=== PATIENT | female | born 1985 | race Hispanic/Latino ===

== ENCOUNTER → 2018-06-23 12:24 | Outpatient (CLI) | payer OTHER, SELFPAY ==
[2018-06-23 12:53] LABS: Appearance Urine UA CLEAR; Bilirubin Urine UA NEGATIVE (NEGATIVE); Color Urine UA YELLOW; Glucose Urine UA NEGATIVE (Normal); Ketones Urine UA NEGATIVE (NEGATIVE); Leukocyte Esterase Urine UA NEGATIVE (NEGATIVE); Nitrite Urine UA NEGATIVE (Negative); Occult Blood Urine UA NEGATIVE (Negative); Protein Urine UA NEGATIVE (Negative); Urobilinogen Urine UA 0.2 E.U./dL (0.2); pH Urine UA 6.5 (4.5-8.0)
[2018-06-23 12:54] LABS: Add Manual Diff / Slide Review NO; Basophils Percent Auto 0.8 % (0-2); Eosinophils Percent Auto 1.3 % (2-4); Hematocrit 38.9 % (36-46); Hemoglobin 13.2 g/dL (12.0-16.0); Lymphocytes Percent Auto 23.9 % (25-40); Mean Corpuscular Hemoglobin 31.4 PG (26-34); Mean Corpuscular Volume 92.5 fL (80-100); Monocytes Percent Auto 4.5 % (3-14); Neutrophils Absolute Auto 5800 /uL (3000-5900); Neutrophils Percent Auto 69.5 % (50-75); Platelet Count 229 X10^3/uL (150-400); Red Blood Cell Count 4.21 X10^6/uL (4.0-5.2); Red Cell Distribution Width 12.9 % (11.6-14.8); White Blood Cell Count 8.4 X10^3/uL (4.5-11.0)
[2018-06-23 15:34] LABS: Hepatitis B Surface Antigen NEGATIVE s/c (NEGATIVE)
[2018-06-23 15:53] LABS: HIV 1 and 2 Antibody NEGATIVE (NEGATIVE); Hep C Virus Ab w/Reflex Quant NEGATIVE s/c (NEGATIVE)
[2018-06-26 07:03] LABS: RPR Screen Nonreactive (Nonreactive)
[2018-06-28 09:59] LABS: HSV 2 IGG AB < 0.90 index (< 0.90); HSV1IGG 1.54 index (< 0.90)
== END ==
PROVIDERS: PCP Family Medicine; Visit Provider Family Medicine
DX: Z34.81 Encounter for supervision of other normal pregnancy, first trimester (principal); Z3A.01 Less than 8 weeks gestation of pregnancy
CPT/HCPCS: 36415; 80055; 81003; 86695; 86696; 86703; 86787; 86803; 86850; 86900; 86901; 87086

== ENCOUNTER → 2018-08-24 10:14 | Outpatient (CLI) | payer OTHER, SELFPAY ==
--- NOTE | 2018-08-24 10:16 | DI.US.S_ITS ---
PROCEDURE: US OB >= 14 WEEKS FETUS INDICATIONS: ANATOMY OUTSIDE/PRIOR DATING DATA: Last menstrual period (LMP): 04/09/18. LMP-based estimated date of delivery (GEOVANNI): 01/14/19. First dating scan (date and location): 08/24/18, this study. Estimated date of delivery (GEOVANNI) from first dating scan: 01/15/19. TECHNIQUE: Real-time scanning was performed of the fetus, with image documentation and biometric measurements. Endovaginal scanning: Not needed for this study. COMPARISON: None. FINDINGS: General: A single living intrauterine gestation is present. Presentation: Vertex. Placenta: Placental position is anterior, without previa. Amniotic fluid index: 16.7 cm, normal range is 5-24 cm. heart rate: 153 beats per minute. Maternal cervical canal: 3.4 cm long. Normal lower limit is 2.5 cm. biometrics: Biparietal diameter: 4.5 cm, 19 weeks 4 days Head circumference: 16.6 cm, 19 weeks 2 days Abdominal circumference: 14.4 cm, 19 weeks 5 days Femur length: 3.0 cm, 19 weeks 1 day Estimated gestational age from initial scan: not applicable. Composite gestational age from present scan: 19 weeks 3 days Estimated weight and percentile: 292 g, 37th percentile Measurement variability for biometric dating: +/- 7 days from 14 weeks to 15 weeks 6 days gestation, +/- 10 days from 16 weeks to 21 weeks 6 days gestation, +/- 2 weeks from 22 weeks to 27 weeks 6 days gestation, +/- 3 weeks for 28 weeks gestation or later. weight reference: 4500 g or EFW >90/95% is considered macrosomia or large for gestational age. EFW <10% is small for gestational age. EFW 5% or less is considered intra-uterine growth restriction. Anatomic survey: Neuro: Ventricles are non-dilated at less than 10 mm. Cisterna magna is normal at 3-11 mm. Cerebellum is normal in size and morphology. Nuchal skin fold: Normal at less than 6 mm between 14-21 weeks gestational age. Face: Nose and lips, facial profile are normal. Spine: No evidence for spina bifida. Heart: 4-chambered heart is present, with normal ventricular outflow tracts. Diaphragm: Diaphragm is intact. Stomach: Left-sided stomach is present. Kidneys: No hydronephrosis. Normal is less than 5 mm in 2nd trimester, less than 7 mm in 3rd trimester. Cord: 3-vessel cord has orthotopic insertion. Bladder: Normal in size. Extremities: All 4 extremities identified. IMPRESSION: Single living intrauterine gestation with estimated current gestational age of 19 weeks 3 days and delivery date projected to be centered on 01/15/19. Dictated by: Abhishek Gonzalez M.D. on 08/24/2018 at 16:13 Approved by: Abhishek Gonzalez M.D. on 08/24/2018 at 16:15
== END ==
PROVIDERS: PCP Family Medicine; Visit Provider Family Medicine
DX: Z36.89 Encounter for other specified antenatal screening (principal); Z3A.19 19 weeks gestation of pregnancy
CPT/HCPCS: 76811

== ENCOUNTER → 2018-10-27 10:22 | Outpatient (CLI) | payer OTHER, SELFPAY ==
[2018-10-27 11:51] LABS: Add Manual Diff / Slide Review NO; Basophils Absolute Auto 0 /uL (0-100); Basophils Percent Auto 0.6 % (0-2); Eosinophils Absolute Auto 100 /uL (0-450); Hematocrit 37.5 % (36-46); Hemoglobin 12.5 g/dL (12.0-16.0); Lymphocytes Absolute Auto 1700 /uL (1100-4500); Lymphocytes Percent Auto 20.8 % (25-40); Mean Corpuscular HGB Conc 33.5 % (30-36); Mean Corpuscular Hemoglobin 32.5 PG (26-34); Mean Corpuscular Volume 97.2 fL (80-100); Monocytes Absolute Auto 300 /uL (0-900); Monocytes Percent Auto 4.1 % (3-14); Neutrophils Absolute Auto 6100 /uL (1500-7000); Neutrophils Percent Auto 73.5 % (50-75); Platelet Count 225 X10^3/uL (150-400); Red Blood Cell Count 3.85 X10^6/uL (4.0-5.2); Red Cell Distribution Width 12.7 % (11.6-14.8); White Blood Cell Count 8.3 X10^3/uL (4.5-11.0)
[2018-10-27 12:24] LABS: GTT (PREG) 1 Hour PP 50gm Dose 144 mg/dL (76-139)
== END ==
PROVIDERS: PCP Family Medicine; Visit Provider Family Medicine
DX: Z34.82 Encounter for supervision of other normal pregnancy, second trimester (principal)
CPT/HCPCS: 36415; 82950; 85025

== ENCOUNTER → 2018-12-26 16:43 | Outpatient (CLI) | payer OTHER, SELFPAY ==
[2018-12-27 12:49] LABS: Strep Grp B PCR NEG for Grp B Strep
== END ==
PROVIDERS: PCP Family Medicine; Visit Provider Family Medicine
DX: Z34.83 Encounter for supervision of other normal pregnancy, third trimester (principal); Z3A.37 37 weeks gestation of pregnancy
CPT/HCPCS: 87653

== ENCOUNTER 2019-01-22 05:22 | Inpatient (IN) | payer OTHER, SELFPAY ==
[2019-01-22 06:20] VITALS: BP 109/73
[2019-01-22 06:30] LABS: Add Manual Diff / Slide Review NO; Basophils Absolute Auto 0 /uL (0-100); Basophils Percent Auto 0.3 % (0-2); Eosinophils Absolute Auto 100 /uL (0-450); Eosinophils Percent Auto 0.5 % (2-4); Hematocrit 35.3 % (36-46); Hemoglobin 12.1 g/dL (12.0-16.0); Lymphocytes Absolute Auto 1800 /uL (1100-4500); Lymphocytes Percent Auto 15.8 % (25-40); Mean Corpuscular HGB Conc 34.2 % (30-36); Mean Corpuscular Hemoglobin 31.8 PG (26-34); Mean Corpuscular Volume 92.8 fL (80-100); Monocytes Absolute Auto 400 /uL (0-900); Monocytes Percent Auto 3.9 % (3-14); Neutrophils Absolute Auto 9100 /uL (1500-7000); Neutrophils Percent Auto 79.5 % (50-75); Platelet Count 187 X10^3/uL (150-400); Red Cell Distribution Width 13.2 % (11.6-14.8); White Blood Cell Count 11.5 X10^3/uL (4.5-11.0)
--- NOTE | 2019-01-22 06:56 | P.HPOB_ITS ---
OB HPI Date/Time Date of admission: 01/22/19 Date Patient Seen: 01/22/19 Time Patient Seen: 06:30 History of Present Condition Chief complaint: OBS : 3 Para: 2 Estimated Date of Delivery: 01/16/19 Estimated Gestational Age (weeks): 40w6d Narrative: Lucy Puri is a 33 year old at 40w6d who presented with regular painful contractions. She reports the contractions starting around 1am, and increasing in intensity and frequency since then. No LOF or vaginal bleeding. She is feeling baby move regularly. History of Present care: good care, initiated at week # (10) and pounds weight gain (18) Dating criteria: LMP confirmed by 1st trimester US Ultrasounds: normal mid trimester US Obstetrical complications: none Medical complications: none Preadmission Labs Blood type: O (+) positive -: Antibody screen: negative, GBS status: negative, HBsAG: negative, HIV: negative, HSV 1: positive, HSV 2: negative and RPR/VDLR: negative -: Chlamydia screen: not detected and Gonorrhea screen: not detected -: Rubella: immune and Varicella: immune HCT: 37.5 HCAB: negative PAP: Abnormal (ASCUS, HPV negative) 1 hr GTT: 144 Narrative: Glucola elevated, declined 3hr GTT. Checked blood sugars in clinic - normal range. Prior (ies) History: 09/05/12 - at 40wks, 6lb8oz male 04/06/15 - at 40wks, 6lb8oz male Evaluation Evaluation Baseline heart rate: 150 Variability: Moderate (11-25) monitor accelerations: Present monitor decelerations: Early Contraction Frequency (minutes): 3 Uterine Contraction Intensity: Strong/Firm Category of Tracing: I Cervical dilation (cm): 8 Cervical effacement (%): 100 station: -1 Laboratory results: Laboratory Tests 01/22/19 06:00 WBC 11.5 H RBC 3.80 L Hgb 12.1 Hct 35.3 L MCV 92.8 MCH 31.8 MCHC 34.2 RDW 13.2 Plt Count 187 Neut % (Auto) 79.5 H Lymph % (Auto) 15.8 L Darke % (Auto) 3.9 Eos % (Auto) 0.5 L Baso % (Auto) 0.3 Neut # (Auto) 9100 H Lymph # (Auto) 1800 Darke # (Auto) 400 Eos # (Auto) 100 Baso # (Auto) 0 PFSH Medical History (Updated 03/22/18 @ 11:10 by Gale Caballero DO) Chickenpox (Resolved ~1990) Social History Smoking Status: Never smoker Social History Smoking Status: Never smoker Meds Allergies Allergy/AdvReac Type Severity Reaction Status Date / Time No Known Allergies Allergy Uncoded 06/16/18 14:25 Exam Vital Signs (past 8 hours): - 01/22/19 06:20 Blood Pressure 109/73 Narrative Exam Narrative: Gen: NAD, sitting comfortably in bed, appears well, breathing calmly through contractions CV: RRR, no murmurs Resp: clear to auscultation bilaterally Abd: soft, nondistended, gravid Ext: no edema Objective Labs Result Diagrams: 01/22/19 06:00 Labs: Laboratory Results - last 24 hr 01/22/19 06:00 WBC 11.5 H RBC 3.80 L Hgb 12.1 Hct 35.3 L MCV 92.8 MCH 31.8 MCHC 34.2 RDW 13.2 Plt Count 187 Neut % (Auto) 79.5 H Lymph % (Auto) 15.8 L Darke % (Auto) 3.9 Eos % (Auto) 0.5 L Baso % (Auto) 0.3 Neut # (Auto) 9100 H Lymph # (Auto) 1800 Darke # (Auto) 400 Eos # (Auto) 100 Baso # (Auto) 0 Assessment and Plan Assessment and Plan Assessment and Plan narrative: 33yo at 40w6d who presented in active labor. GBS negative, Rh positive. Elevated glucola in , declined 3hr GTT with normal/low blood sugars in clinic consistently. - Expectant management, anticipate - GBS negative, no prophylaxis indicated - FHT reassuring - Pt does not desire epidural at this time, natural methods for pain control
--- NOTE | 2019-01-22 07:58 | PM.OBPRVD ---
Delivery date: 01/22/19 Intrapartal events: None Cervical ripening method: none Delivery augmentation: rupture of membranes (with thick meconium present) Delivery monitor: external FHT Route of delivery: Episiotomy description: None L&D Laceration Description: None Estimated blood loss (mL): 250 Anesthesia type: None Complications: None Narrative: PROCEDURE: at 40w6d presented in active labor and was admitted to Labor and Delivery. The patient progressed through the 1st stage over 7 hours. Pain was controlled by natural methods. AROM was performed with production of thick meconium. The patient progressed through the 2nd stage over 30 minutes and delivered a viable male with APGARs 8/9 at 7:37am via without complications. The cord was clamped and cut after it stopped pulsating. The baby cried spontaneously at delivery. The perineum and vagina were inspected with no lacerations present.. PREPROCEDURE DIAGNOSIS: Intrauterine at 40w6d GBS negative RH positive POSTPROCEDURE DIAGNOSIS: Intrauterine at 40w6d, delivered Same as preprocedure ROM APPEARANCE: Thick meconium BABY A WEIGHT: 8lb0oz, 3632g BABY A NUCHAL CORD: None BABY A CORD GASES OBTAINED: No PLACENTA DELIVERY TIME: 7:43am PLACENTA APPEARANCE: Intact Baby 1: Infant gender: Male Presentation: vertex position: Right Occiput Anterior Placenta delivery description: Spontaneous cord vessel description: 3 Vessels Plan for aftercare: Normal care
[2019-01-22] MEDS: IBUPROFEN 600 MG TABLET PO ×2 (08:20→14:26)
--- NOTE | 2019-01-23 08:09 | PM.OBDS.1 ---
Discharge Providers Date of admission: 01/22/19 05:22 Discharge Date: 01/23/19 Primary care physician: Gale Caballero DO Consults: 01/22/19 08:20 Consult to Environmental Studies Faculty Member Routine Comment: Discharge provider: Cassidy Swanson MD Summary Date Patient Seen: 01/23/19 Time Patient Seen: 07:45 Procedures: Spontaneous vaginal delivery Hospital Course: The patient presented in active labor. She was GBS negative and did not receive any antibiotic prophylaxis. The she progressed to complete using natural methods for pain control. She had an uncomplicated spontaneous vaginal delivery of a viable baby boy with Apgars 8 and 9. There were no lacerations. , there were no complications. At the time of discharge she was voiding, ambulating, and passing flatus without difficulty. Her lochia was decreasing appropriately. She was breast-feeding with good latching no significant nipple discomfort. Her pain was adequately controlled. She will be discharged home today to follow up in 6 weeks for check. She plans to use condoms for contraception. Peripartum Data Delivery Method: Natural Vaginal Laceration description: None Episiotomy description: None Procedures: Spontaneous vaginal delivery complications: none [place] 1: Gender: Male Disposition of : home Discharge Diagnosis (1) Spontaneous vaginal delivery: Status: Acute Status at Discharge Cognitive/behavioral status at discharge: oriented Functional status at discharge: independent ambulation Overall status at discharge: patient is progressing back to baseline Time Spent with Patient Total time spent providing and/or coordinating discharge services: Greater than 30 minutes Objective Labs Result Diagrams: 01/22/19 06:00 Exam Narrative Exam Narrative: General: No acute distress, sitting comfortably at side of bed, appears well CV: Regular rate and rhythm, no murmurs Respiratory: Clear to auscultation bilaterally Abdomen: Soft, nondistended, normoactive bowel sounds, fundus firm below the umbilicus Extremities: Trace edema Discharge Plan Discharge Plan Patient Disposition: Home Discharge Med Rec/Prescriptions Prescriptions: New acetaminophen 325 mg Tablet 650 mg PO Q6HR PRN (Reason: Pain, Mild (1-3)) Qty: 30 RF: 0 ibuprofen 600 mg Tablet 600 mg PO Q6HR PRN (Reason: Pain, Mild (1-3)) Qty: 30 RF: 0 docusate sodium 250 mg Capsule 250 mg PO DAILY Qty: 30 RF: 0 Hdj-[id number]-[id number] Cream 1 applic topical PRN PRN (Reason: Tenderness) Qty: 15 RF: 0 Prenatabs Rx 29 mg iron- 1 mg Tablet 1 tab PO DAILY Qty: 30 RF: 0 Follow up/Referrals: Gale Caballero DO [Primary Care Provider] - Provider Discharge Instructions Diet: Diet as Tolerated and Regular Activity: No intercourse for 6 weeks Skin/Wound/Dressing Care Report to your healthcare provider any signs of infection, such as:: chills, fever, increased pain and unusual drainage Visit Report/Discharge Packet Instructions: DI for Labor and Delivery, Vaginal Visit Report Forms: Stroke Signs & Symptoms Discharge Data Primary Care Provider: Gale Caballero Attending Provider: Cassidy Swanson [place] Date/Time: 01/22/19 05:22
--- NOTE | 2019-01-23 08:15 | P.DS_ITS ---
Discharge Providers Date of admission: 01/22/19 05:22 Discharge Date: 01/23/19 Primary care physician: Gale Caballero DO Consults: 01/22/19 08:20 Consult to Atomic Physics Professor Routine Comment: Discharge provider: Cassidy Swanson MD Summary Date Patient Seen: 01/23/19 Time Patient Seen: 07:45 Procedures: Spontaneous vaginal delivery Hospital Course: The patient presented in active labor. She was GBS negative and did not receive any antibiotic prophylaxis. The she progressed to complete using natural methods for pain control. She had an uncomplicated spontaneous vaginal delivery of a viable baby boy with Apgars 8 and 9. There were no lacerations. , there were no complications. At the time of discharge she was voiding, ambulating, and passing flatus without difficulty. Her lochia was decreasing appropriately. She was breast-feeding with good latching no significant nipple discomfort. Her pain was adequately controlled. She will be discharged home today to follow up in 6 weeks for check. She plans to use condoms for contraception. Peripartum Data Delivery Method: Natural Vaginal Laceration description: None Episiotomy description: None Procedures: Spontaneous vaginal delivery complications: none [place] 1: Gender: Male Disposition of : home Discharge Diagnosis (1) Spontaneous vaginal delivery: Status: Acute Status at Discharge Cognitive/behavioral status at discharge: oriented Functional status at discharge: independent ambulation Overall status at discharge: patient is progressing back to baseline Time Spent with Patient Total time spent providing and/or coordinating discharge services: Greater than 30 minutes Objective Labs Result Diagrams: 01/22/19 06:00 Exam Narrative Exam Narrative: General: No acute distress, sitting comfortably at side of bed, appears well CV: Regular rate and rhythm, no murmurs Respiratory: Clear to auscultation bilaterally Abdomen: Soft, nondistended, normoactive bowel sounds, fundus firm below the u mbilicus Extremities: Trace edema Discharge Plan Discharge Plan Patient Disposition: Home Discharge Med Rec/Prescriptions Prescriptions: New acetaminophen 325 mg Tablet 650 mg PO Q6HR PRN (Reason: Pain, Mild (1-3)) Qty: 30 RF: 0 ibuprofen 600 mg Tablet 600 mg PO Q6HR PRN (Reason: Pain, Mild (1-3)) Qty: 30 RF: 0 docusate sodium 250 mg Capsule 250 mg PO DAILY Qty: 30 RF: 0 Vvs-I-Tffuoq Cream 1 applic topical PRN PRN (Reason: Tenderness) Qty: 15 RF: 0 Prenatabs Rx 29 mg iron- 1 mg Tablet 1 tab PO DAILY Qty: 30 RF: 0 Follow up/Referrals: Gale Caballero DO [Primary Care Provider] - Provider Discharge Instructions Diet: Diet as Tolerated and Regular Activity: No intercourse for 6 weeks Skin/Wound/Dressing Care Report to your healthcare provider any signs of infection, such as:: chills, fever, increased pain and unusual drainage Visit Report/Discharge Packet Instructions: DI for Labor and Delivery, Vaginal Visit Report Forms: Stroke Signs & Symptoms Discharge Data Primary Care Provider: Gale Caballero Attending Provider: Cassidy Swanson Admben Date/Time: 01/22/19 05:22
[2019-01-23 09:46] VITALS: BP 109/73; PULSE 80; RESP 18; TEMP 36.9
[2019-01-23] MEDS: DOCUSATE 250 MG CAPSULE PO (10:44)
== END 2019-01-23 13:56 | disposition home or self-care (01) | DRG 807 ==
PROVIDERS: Admitting Provider Family Medicine; PCP Family Medicine; Visit Provider Family Medicine
DX: O77.0 Labor and delivery complicated by meconium in amniotic fluid (principal); Z37.0 Single live birth; Z3A.40 40 weeks gestation of pregnancy
CPT/HCPCS: 59050; 59400; 85025; 86850; 86900; 86901; G0379

== ENCOUNTER → 2021-01-06 13:44 | Outpatient (CLI) | payer OTHER, SELFPAY ==
[2021-01-06 14:16] LABS: Add Manual Diff / Slide Review NO; Basophils Absolute Auto 0 /uL (0-100); Basophils Percent Auto 0.8 % (0-2); Eosinophils Absolute Auto 100 /uL (0-450); Eosinophils Percent Auto 1.8 % (2-4); Hematocrit 39.9 % (36-46); Hemoglobin 13.4 g/dL (12.0-16.0); Lymphocytes Absolute Auto 1800 /uL (1100-4500); Lymphocytes Percent Auto 29.1 % (25-40); Mean Corpuscular HGB Conc 33.7 % (30-36); Mean Corpuscular Hemoglobin 31.8 PG (26-34); Mean Corpuscular Volume 94.4 fL (80-100); Monocytes Absolute Auto 300 /uL (0-900); Monocytes Percent Auto 4.6 % (3-14); Neutrophils Absolute Auto 3900 /uL (1500-7000); Neutrophils Percent Auto 63.7 % (50-75); Platelet Count 226 X10^3/uL (150-400); Red Blood Cell Count 4.22 X10^6/uL (4.0-5.2); Red Cell Distribution Width 12.5 % (11.6-14.8); White Blood Cell Count 6.1 X10^3/uL (4.5-11.0)
[2021-01-06 14:57] LABS: Alanine Aminotransferase 15 IU/L (<35); Albumin 4.9 g/dL (3.5-5.0); Albumin Globulin Ratio 1.8 (1.0-2.8); Alkaline Phosphatase 50 U/L (38-126); Aspartate Aminotransferase 22 IU/L (14-36); BUN Creatinine Ratio 21.5 (6-22); Bilirubin Total 0.4 mg/dL (0.2-1.3); Blood Urea Nitrogen 14 mg/dL (7-17); Calcium 9.7 mg/dL (8.4-10.2); Carbon Dioxide 26 mmol/L (22-32); Chloride 106 mmol/L (98-107); Estimated Glomerular Filt Rate > 60.0 mL/min (>60); Globulin 2.7 g/dL (1.7-4.1); Glucose 99 mg/dL (70-100); HEMOLYSIS < 15 (0-50); Potassium 3.9 mmol/L (3.4-5.1); Sodium 140 mmol/L (137-145); Total Protein 7.6 g/dL (6.3-8.2)
[2021-01-06 15:53] LABS: Free T4, Direct Thyroxine 1.33 ng/dL (0.78-2.19)
[2021-01-06 16:06] LABS: Thyroid Stimulating Hormone 0.019 uIU/mL (0.47-4.68)
[2021-01-07 09:53] LABS: Free T3, Triiodothyronine Free 4.67 pg/mL (2.77-5.27)
== END ==
PROVIDERS: PCP Family Medicine; Referring Provider Registered Nurse; Visit Provider Registered Nurse
DX: F41.8 Other specified anxiety disorders (principal); N92.6 Irregular menstruation, unspecified
CPT/HCPCS: 36415; 80053; 84439; 84443; 84481; 85025

== ENCOUNTER → 2021-02-12 15:01 | Outpatient (CLI) | payer OTHER, SELFPAY ==
[2021-02-12 16:57] LABS: Free T3, Triiodothyronine Free 2.86 pg/mL (2.77-5.27); Free T4, Direct Thyroxine 0.84 ng/dL (0.78-2.19)
[2021-02-12 17:11] LABS: Thyroid Stimulating Hormone 0.652 uIU/mL (0.47-4.68)
[2021-02-12 20:53] LABS: Prolactin 8.7 ng/mL (3.0-18.6)
[2021-02-13 06:08] LABS: Thyroid Peroxidase Antibodies >600 IU/mL (0-34)
[2021-02-13 19:36] LABS: Anti Thyroglobulin Antibody 2.2 IU/mL (0.0-0.9)
[2021-02-16 12:59] LABS: Thyroid Stimulating Immunoglob < 0.10 IU/L (0.00-0.55)
== END ==
PROVIDERS: PCP Family Medicine; Referring Provider Family Medicine; Visit Provider Family Medicine
DX: E05.90 Thyrotoxicosis, unspecified without thyrotoxic crisis or storm (principal); N92.6 Irregular menstruation, unspecified
CPT/HCPCS: 36415; 84146; 84439; 84443; 84445; 84481; 86376; 86800

== ENCOUNTER → 2021-04-06 09:10 | Outpatient (CLI) | payer OTHER, SELFPAY ==
--- NOTE | 2021-04-06 09:10 | DI.US.S_ITS ---
PROCEDURE: US THYROID INDICATIONS: THYROTOXICOSIS TECHNIQUE: Real-time scanning was performed of the thyroid gland, with image documentation. COMPARISON: None. FINDINGS: Right: Thyroid lobe measures 5.7 x 1.8 x 1.9 cm, and is homogeneous in echotexture. Left: Thyroid lobe measures 5.3 x 1.7 x 1.4 cm, and is homogenous in echotexture. Isthmus: 4 mm thick. The thyroid demonstrates mildly increased generalized vascularity. No significant abnormalities can be seen adjacent to the thyroid. IMPRESSION: Normal appearing thyroid, yet with mildly increased generalized vascularity, which would be supportive of a clinical diagnosis of thyroiditis. Dictated by: Marvin Joseph M.D. on 04/06/2021 at 9:16 Approved by: Marvin Joseph M.D. on 04/06/2021 at 9:17
== END ==
PROVIDERS: PCP Family Medicine; Referring Provider Family Medicine; Visit Provider Family Medicine
DX: E05.90 Thyrotoxicosis, unspecified without thyrotoxic crisis or storm (principal)
CPT/HCPCS: 76536

== ENCOUNTER → 2021-05-25 15:49 | Outpatient (CLI) | payer OTHER, SELFPAY ==
[2021-05-25 17:52] LABS: Free T3, Triiodothyronine Free 3.11 pg/mL (2.77-5.27)
[2021-05-25 18:06] LABS: Thyroid Stimulating Hormone 3.83 uIU/mL (0.47-4.68)
== END ==
PROVIDERS: PCP Family Medicine; Referring Provider Family Medicine; Visit Provider Family Medicine
DX: E05.90 Thyrotoxicosis, unspecified without thyrotoxic crisis or storm (principal)
CPT/HCPCS: 36415; 84439; 84443; 84481

== ENCOUNTER → 2023-05-30 08:52 | Outpatient (CLI) | payer OTHER, SELFPAY ==
--- NOTE | 2023-05-30 08:53 | DI.US.S_ITS ---
PROCEDURE: US OB <= 14 WEEKS FETUS INDICATIONS: DATES OUTSIDE/PRIOR DATING DATA: Last menstrual period (LMP): 02/24/2023. LMP-based estimated date of delivery (GEOVANNI): 12/01/2023. First dating scan (date and location): 05/30/2023. Estimated date of delivery (GEOVANNI) from first dating scan: 12/02/2023. TECHNIQUE: Real-time scanning was performed of the fetus and maternal pelvic organs, with image documentation. COMPARISON: None from this . FINDINGS: Fetus: Biparietal diameter 2.3 cm 13 weeks 6 days Head circumference 8.9 cm 14 weeks 0 days Abdominal circumference 6.7 cm 13 weeks 2 days Femur length 0.9 cm 12 weeks 5 days Composite gestational age: 13 weeks 3 days Heart rate: 149 beats per minute Maternal organs: Right ovary unremarkable. Left ovary not visualized. Cervical length 3.9 cm. IMPRESSION: Single living intrauterine . Gestational age of 13 weeks 3 days by biometry corresponding to an GEOVANNI of 12/02/2023, concordant with clinical dates. We strive to produce accurate, complete, and clear reports of imaging services. To assist us in improving patient care, this report was composed using standard report templates and voice recognition software. Therefore, it may contain abnormal punctuation, insertions and/or omissions. Occasional wrong-word or sound-alike substitutions may occur. Though we review the report and make efforts to correct it, we do recommend that the report be read carefully in proper context to recognize any text inaccuracies. Dictated by: Fausto Mcintosh M.D. on 05/30/2023 at 9:55 Approved by: Fausto Mcintosh M.D. on 05/30/2023 at 10:07
== END ==
PROVIDERS: Referring Provider Family Medicine; Visit Provider Family Medicine
DX: Z34.80 Encounter for supervision of other normal pregnancy, unspecified trimester (principal); Z3A.13 13 weeks gestation of pregnancy
CPT/HCPCS: 76801

== ENCOUNTER → 2023-07-02 11:21 | Outpatient (CLI) | payer OTHER, SELFPAY ==
[2023-07-02 12:08] LABS: Add Manual Diff / Slide Review NO; Basophils Absolute Auto 0 /uL (0-100); Basophils Percent Auto 0.5 % (0-2); Eosinophils Absolute Auto 200 /uL (0-450); Eosinophils Percent Auto 2.4 % (2-4); Hemoglobin 12.2 g/dL (12.0-16.0); Lymphocytes Absolute Auto 2100 /uL (1100-4500); Mean Corpuscular HGB Conc 34.8 % (30-36); Mean Corpuscular Hemoglobin 31.9 PG (26-34); Mean Corpuscular Volume 91.6 fL (80-100); Monocytes Absolute Auto 500 /uL (0-900); Monocytes Percent Auto 5.7 % (3-14); Neutrophils Absolute Auto 5900 /uL (1500-7000); Neutrophils Percent Auto 67.4 % (50-75); Platelet Count 248 X10^3/uL (150-400); Red Blood Cell Count 3.82 X10^6/uL (4.0-5.2); Red Cell Distribution Width 13.4 % (11.6-14.8); White Blood Cell Count 8.8 X10^3/uL (4.5-11.0)
[2023-07-02 12:13] LABS: Appearance Urine UA CLEAR; Bilirubin Urine UA NEGATIVE (NEGATIVE); Color Urine UA YELLOW; Glucose Urine UA NEGATIVE (Negative); Ketones Urine UA NEGATIVE (NEGATIVE); Leukocyte Esterase Urine UA NEGATIVE (NEGATIVE); Nitrite Urine UA NEGATIVE (Negative); Occult Blood Urine UA NEGATIVE (Negative); Protein Urine UA NEGATIVE (Negative); Urobilinogen Urine UA 0.2 E.U./dL (0.2)
[2023-07-02 12:18] LABS: pH Urine UA 6.5 (4.5-8.0)
[2023-07-02 12:41] LABS: Free T3, Triiodothyronine Free 2.98 pg/mL (2.77-5.27); Free T4, Direct Thyroxine 0.85 ng/dL (0.78-2.19)
[2023-07-02 12:54] LABS: Thyroid Stimulating Hormone 2.25 uIU/mL (0.47-4.68)
[2023-07-03 06:51] LABS: RPR Screen Non Reactive (Non Reactive)
[2023-07-03 09:59] LABS: Varicella IgG Antibody 1111 index (Immune >165)
[2023-07-04 15:28] LABS: Hepatitis B Surface Antigen NEGATIVE s/c (NEGATIVE); Rubella Antibody IgG 16.4 IU/mL (>15)
[2023-07-04 15:44] LABS: HIV 1 & 2 Ab/Ag 4th Gen Combo NEGATIVE (NEGATIVE); Hep C Virus Ab w/Reflex Quant NEGATIVE s/c (NEGATIVE)
== END ==
PROVIDERS: PCP Family Medicine; Referring Provider Family Medicine; Visit Provider Family Medicine
DX: Z34.80 Encounter for supervision of other normal pregnancy, unspecified trimester (principal); E06.3 Autoimmune thyroiditis
CPT/HCPCS: 36415; 80055; 81003; 84439; 84443; 84481; 86787; 86803; 86850; 86900; 86901; 87086; 87389

== ENCOUNTER → 2023-07-18 09:04 | Outpatient (CLI) | payer OTHER, SELFPAY ==
--- NOTE | 2023-07-18 09:05 | DI.US.S_ITS ---
PROCEDURE: US OB >= 14 WEEKS FETUS INDICATIONS: growth OUTSIDE/PRIOR DATING DATA: Last menstrual period (LMP): 02/24/2023. LMP-based estimated date of delivery (GEOVANNI): 12/01/2023. First dating scan (date and location): 05/30/2023. Estimated date of delivery (GEOVANNI) from first dating scan: 12/01/2022. The calculations are made using the working GEOVANNI of 11/30/2022. TECHNIQUE: Real-time scanning was performed of the fetus, with image documentation and biometric measurements. COMPARISON: [facility], OB >= 14 WEEKS FETUS, 08/24/2018, 10:37. [facility], OB <= 14 WEEKS FETUS, 05/30/2023, 9:00. FINDINGS: General: A single living intrauterine gestation is present. Presentation: Vertex. Placenta: Placental position is anterior , without previa. Amniotic fluid index: 10.4 cm, normal range is 5-24 cm. Single deepest vertical pocket is 4.6 cm. heart rate: 143 beats per minute. Maternal cervical canal: 4.0 cm long. Normal lower limit is 2.5 cm. biometrics: Biparietal diameter: 19 weeks 4 days Head circumference: 19 weeks 4 days Abdominal circumference: 20 weeks 0 day Femur length: 19 weeks 5 days Clinically estimated gestational age: 20 weeks 4 days Composite gestational age from present scan: 19 weeks 5 days Estimated weight and percentile: 315 g; 13% for gestational age. Anatomic survey: Neuro: Ventricles are non-dilated at less than 10 mm. Cisterna magna is normal at 3-11 mm. Cerebellum is normal in size and morphology. Nuchal skin fold: Normal at less than 6 mm between 14-21 weeks gestational age. Face: Nose and lips, facial profile are normal. Spine: No evidence for spina bifida. Heart: 4-chambered heart is present, with normal ventricular outflow tracts. Diaphragm: Diaphragm is intact. Stomach: Left-sided stomach is present. Kidneys: No hydronephrosis. Normal is less than 5 mm in 2nd trimester, less than 7 mm in 3rd trimester. Cord: 3-vessel cord has orthotopic insertion. Bladder: Normal in size. Extremities: All 4 extremities identified. IMPRESSION: 1. A single living intrauterine gestation redemonstrated with interval growth within normal limits. 2. Normal anatomic survey. 3. The estimated weight is 13% for gestational age. We strive to produce accurate, complete, and clear reports of imaging services. To assist us in improving patient care, this report was composed using standard report templates and voice recognition software. Therefore, it may contain abnormal punctuation, insertions and/or omissions. Occasional wrong-word or sound-alike substitutions may occur. Though we review the report and make efforts to correct it, we do recommend that the report be read carefully in proper context to recognize any text inaccuracies. Dictated by: Ramesh Niño M.D. on 07/18/2023 at 11:41 Approved by: Ramesh Niño M.D. on 07/18/2023 at 11:47
== END ==
PROVIDERS: PCP Family Medicine; Referring Provider Family Medicine; Visit Provider Family Medicine
DX: Z34.80 Encounter for supervision of other normal pregnancy, unspecified trimester (principal)
CPT/HCPCS: 76811

== ENCOUNTER 2023-10-26 09:21 | Outpatient (CLI) | payer OTHER, SELFPAY ==
--- NOTE | 2023-10-26 09:39 | DI.US.S_ITS ---
PROCEDURE: US OB LIMITED INDICATIONS: IUGR OUTSIDE/PRIOR DATING DATA: Last menstrual period (LMP): 02/24/2023. LMP-based estimated date of delivery (GEOVANNI): 12/01/2023. First dating scan (date and location): 05/30/2023. Estimated date of delivery (GEOVANNI) from first dating scan: 12/01/2022. TECHNIQUE: Real-time scanning was performed of the fetus, with image documentation and biometric measurements. Biophysical profile was also obtained. Endovaginal scanning: Not performed COMPARISON: None. FINDINGS: General: A single living intrauterine gestation is present. Presentation: Breech. Placenta: Placental position is anterior left , without previa. Amniotic fluid index: 7.4 cm, normal range is 5-24 cm. Single deepest vertical pocket is 3.3 cm. heart rate: 140 beats per minute. Maternal cervical canal: Not visualized biometrics: Biparietal diameter: 8.8 centimeters, 35 weeks 4 days Head circumference: 31.9 centimeters, 36 weeks 0 days Abdominal circumference: 30.1 centimeters, 34 weeks 0 days Femur length: 6.5 centimeters, 33 weeks 4 days Clinically estimated gestational age: 34 weeks 6 days Composite gestational age from present scan: 34 weeks 6 days Estimated weight and percentile: 2388 grams, 29th percentile Biophysical profile: Tone: 2 points. Movement: 2 points. Respiration: 2 points. Largest pocket of fluid: 2 points. Umbilical artery Doppler: Normal. IMPRESSION: Single living intrauterine at 34 weeks 6 days, GEOVANNI 12/01/2023. Estimated weight of 2388 grams, 29th percentile. BPP 8 of 8. We strive to produce accurate, complete, and clear reports of imaging services. To assist us in improving patient care, this report was composed using standard report templates and voice recognition software. Therefore, it may contain abnormal punctuation, insertions and/or omissions. Occasional wrong-word or sound-alike substitutions may occur. Though we review the report and make efforts to correct it, we do recommend that the report be read carefully in proper context to recognize any text inaccuracies. Dictated by: Juarez Howell M.D. on 10/26/2023 at 10:54 Approved by: Juarez Howell M.D. on 10/26/2023 at 11:02
--- NOTE | 2023-10-26 10:38 | PM.OBTRLD ---
Visit Information Visit Information Date of evaluation: 10/26/23 Primary OB Provider: Cassidy Swanson Comments/Additional reasons for admission: 38yo at 34w6d here for NST for IUGR. Pt is feeling her baby move regularly. No bleeding, LOF, contractions. [facility] Medical History (Updated 09/02/23 @ 09:16 by Casisdy Swanson MD) Tachycardia Anxiety with depression Thyroiditis, autoimmune Spontaneous vaginal delivery Chickenpox (~1990) Surgical History (Updated 05/31/23 @ 08:36 by Magaly Casanova RN) [place] teeth extracted (~10/2019) Social History marital status: number of children: 3 household members: spouse, family (mother) and children lives independently: Yes caregiver/support person: Yes housing: house pets and animals: Yes (dogs) education level: college (bachelor's degree) occupational status: employed (Office job) current occupational exposures/hazards: No special [place] needs: No travel history: over 6 months ago seatbelt use: always water heater temp set < 120 deg: Yes working smoke detector in home: Yes fire extinguisher in home: Yes carbon monox detector in home: Yes firearms in home: No do you feel safe at home: Yes Smoking Status: Never smoker second hand exposure: No alcohol intake: former (very rarely when not ) substance use type: does not use during the past year weight has: remained stable well-balanced diet: rarely or never daily servings fruits/ve-1 caffeine: Yes (1 cup coffee in AM) Type(s) of exercise: walking Evaluation Evaluation Baseline heart rate: 150 Variability: Moderate (11-25) monitor accelerations: Present Monitor Decelerations: Absent Diagnosis, Plan/Disposition Plan/Disposition Plan: 38yo at 34w6d here for NST for IUGR. NST initially nonreactive with minimal variability, then improved to moderate with accels. BPP 8/8 today, umbilical dopplers good range. Stable for d/c home. Has f/u with MFM next week. OB Disposition: home
== END 2023-10-26 10:40 | disposition home or self-care (01) ==
LOC: LABOR 10:13 → OB 10-28 10:00
PROVIDERS: PCP Family Medicine; Referring Provider Family Medicine; Visit Provider Family Medicine
DX: O36.5930 Maternal care for other known or suspected poor fetal growth, third trimester, not applicable or unspecified (principal); Z3A.34 34 weeks gestation of pregnancy
CPT/HCPCS: 59025; 76815; 76819; 76820; G0378; G0379

== ENCOUNTER 2023-11-11 13:53 | Outpatient (CLI) | payer OTHER, SELFPAY ==
--- NOTE | 2023-11-11 14:15 | DI.US.S_ITS ---
PROCEDURE: US OB LIMITED INDICATIONS: umb art dopplers OUTSIDE/PRIOR DATING DATA: Last menstrual period (LMP): 02/24/2023. LMP-based estimated date of delivery (GEOVANNI): 12/01/2023. First dating scan (date and location): 05/30/2023. Estimated date of delivery (GEOVANNI) from first dating scan: 12/02/2023 The calculations are made using the working GEOVANNI of 12/01/2023. TECHNIQUE: Real-time scanning was performed of the fetus for biophysical profile, with image documentation. Color and pulse Doppler interrogation was also performed of the umbilical artery near its insertion into the placenta. Endovaginal scanning: Not performed COMPARISON: [facility], OB LIMITED, 10/26/2023, 10:15. FINDINGS: General: A single living intrauterine gestation is present. Presentation: Breech with spine to maternal left. Placenta: Placental position is anterior , without previa. Amniotic fluid index: 13.7 cm, normal range is 5-24 cm. Single deepest vertical pocket is 4.0 cm. heart rate: 132 beats per minute. Maternal cervical canal: 3.7 cm long, closed. Normal lower limit is 2.5 cm. Clinically estimated gestational age: 37 weeks 1 day . Umbilical artery Doppler: 2.6, 1.8, 2.2 IMPRESSION: 1. Late 3rd trimester intrauterine with no sonographic evidence of complications. 2. Normal umbilical artery Dopplers. We strive to produce accurate, complete, and clear reports of imaging services. To assist us in improving patient care, this report was composed using standard report templates and voice recognition software. Therefore, it may contain abnormal punctuation, insertions and/or omissions. Occasional wrong-word or sound-alike substitutions may occur. Though we review the report and make efforts to correct it, we do recommend that the report be read carefully in proper context to recognize any text inaccuracies. Dictated by: Jt Hunt M.D. on 11/11/2023 at 17:16 Approved by: Jt Hunt M.D. on 11/11/2023 at 17:19
== END 2023-11-11 15:16 | disposition home or self-care (01) ==
LOC: LABOR 14:39 → OB 11-14 08:07
PROVIDERS: PCP Family Medicine; Referring Provider Family Medicine; Visit Provider Family Medicine
DX: O36.5930 Maternal care for other known or suspected poor fetal growth, third trimester, not applicable or unspecified (principal); Z3A.37 37 weeks gestation of pregnancy
CPT/HCPCS: 59025; 76815; G0378; G0379

== ENCOUNTER → 2023-11-14 12:27 | Outpatient (CLI) | payer OTHER, SELFPAY ==
[2023-11-15 14:11] LABS: Strep Grp B PCR NEG for Grp B Strep
== END ==
PROVIDERS: PCP Family Medicine; Visit Provider Family Medicine
DX: Z34.80 Encounter for supervision of other normal pregnancy, unspecified trimester (principal)
CPT/HCPCS: 87653

== ENCOUNTER 2023-11-24 08:42 | Outpatient (CLI) | payer OTHER, SELFPAY ==
--- NOTE | 2023-11-24 09:31 | P.TNLD_ITS ---
Visit Information Visit Information Date of evaluation: 11/24/23 Primary OB Provider: Cassidy Swanson On-call OB Provider: Brigitte Self Reason for Evaluation: Yes non-stress test FORMERLY [facility], [facility]–1983 Medical History (Updated 09/02/23 @ 09:16 by Cassidy Swanson MD) Tachycardia Anxiety with depression Thyroiditis, autoimmune Spontaneous vaginal delivery Chickenpox (~1990) Surgical History (Updated 05/31/23 @ 08:36 by Magaly Casanova RN) [place] teeth extracted (~10/2019) Social History marital status: number of children: 3 household members: spouse, family (mother) and children lives independently: Yes caregiver/support person: Yes housing: house pets and animals: Yes (dogs) education level: college (bachelor's degree) occupational status: employed (Office job) current occupational exposures/hazards: No special clarita needs: No travel history: over 6 months ago seatbelt use: always water heater temp set < 120 deg: Yes working smoke detector in home: Yes fire extinguisher in home: Yes carbon monox detector in home: Yes firearms in home: No do you feel safe at home: Yes Smoking Status: Never smoker second hand exposure: No alcohol intake: former (very rarely when not ) substance use type: does not use during the past year weight has: remained stable well-balanced diet: rarely or never daily servings fruits/ve-1 caffeine: Yes (1 cup coffee in AM) Type(s) of exercise: walking Evaluation Evaluation Baseline heart rate: 145 Variability: Moderate (11-25) monitor accelerations: Present Monitor Decelerations: Absent Contraction Frequency (minutes): 0 Category of Tracing: Reactive Status: Category l Comments: first 20 minutes on the monitor with only one acceleration, then tracing improved significantly at 25 minutes on, now with baseline 145-150, moderate variability, accels present and no decels. REactive NST. Diagnosis, Plan/Disposition Plan/Disposition Plan: 40 yo at 39w EGA presenting for scheduled NST for FGR. NST Reactive. Pt scheduled for OB apt with me in 1 hour - f/up for OB apt, then next week for next apt and next NST - See additional documentation today for further details OB Disposition: home
--- NOTE | 2023-11-24 10:06 | DI.US.S_ITS ---
PROCEDURE: US OB BIOPHYSICAL PROFILE INDICATIONS: SUB-OPTIMAL NST OUTSIDE/PRIOR DATING DATA: Last menstrual period (LMP): 02/24/2023. LMP-based estimated date of delivery (GEOVANNI): 12/01/2023 First dating scan (date and location): 05/30/2023. Estimated date of delivery (GEOVANNI) from first dating scan: 12/01/2022. The calculations are made using the clinical GEOVANNI of 12/01/2023. TECHNIQUE: Real-time scanning was performed of the fetus for biophysical profile, with image documentation. Color and pulse Doppler interrogation was also performed of the umbilical artery near its insertion into the placenta. Endovaginal scanning: Not performed COMPARISON: [facility], , OB LIMITED, 11/11/2023, 14:53. FINDINGS: General: A single living intrauterine gestation is present. Presentation: Transverse. Amniotic fluid index: 6.4 cm, normal range is 5-24 cm. Single deepest vertical pocket is 2.5 cm. heart rate: 162 beats per minute. Clinically estimated gestational age: 39 weeks, 0 days Biophysical profile: Tone: 2 points. Movement: 2 points. Respiration: 2 points. Largest pocket of fluid: 2 points. IMPRESSION: Single live intrauterine consistent with 39 weeks and 0 days. Normal biophysical profile. Amniotic fluid index of 6.4 cm with largest vertical pocket of 2.5 cm. We strive to produce accurate, complete, and clear reports of imaging services. To assist us in improving patient care, this report was composed using standard report templates and voice recognition software. Therefore, it may contain abnormal punctuation, insertions and/or omissions. Occasional wrong-word or sound-alike substitutions may occur. Though we review the report and make efforts to correct it, we do recommend that the report be read carefully in proper context to recognize any text inaccuracies. Dictated by: Enrique Martins M.D. on 11/24/2023 at 12:30 Approved by: Enrique Martins M.D. on 11/24/2023 at 12:32
== END 2023-11-24 10:10 | disposition home or self-care (01) ==
LOC: LABOR 13:54 → OB 11-25 14:27
PROVIDERS: PCP Family Medicine; Referring Provider Family Medicine; Visit Provider Family Medicine
DX: O36.8330 Maternal care for abnormalities of the fetal heart rate or rhythm, third trimester, not applicable or unspecified (principal); Z3A.39 39 weeks gestation of pregnancy
CPT/HCPCS: 59025; 76819; G0378; G0379

== ENCOUNTER → 2023-11-30 06:57 | Outpatient (CLI) | payer OTHER, SELFPAY ==
--- NOTE | 2023-11-30 06:58 | DI.US.S_ITS ---
PROCEDURE: US OB LIMITED INDICATIONS: POSITION OUTSIDE/PRIOR DATING DATA: Last menstrual period (LMP): 02/24/2023. LMP-based estimated date of delivery (GEOVANNI): 12/01/2023. First dating scan (date and location): 05/30/2023. Estimated date of delivery (GEOVANNI) from first dating scan: 12/02/2023. The calculations are made using the clinical GEOVANNI of 12/01/2023. TECHNIQUE: Real-time scanning was performed of the fetus, with image documentation. Endovaginal scanning: Not performed COMPARISON: [facility], OB BIOPHYSICAL PROFILE, 11/24/2023, 11:11. Merged with [facility], OB LIMITED, 11/11/2023, 14:53. FINDINGS: A single living intrauterine gestation is present. Presentation: Vertex. Placenta: Placental position is anterior left, without previa. Amniotic fluid index: 8.6 cm, normal range is 5-24 cm. Single deepest vertical pocket is 3.7 cm. heart rate: 130 beats per minute. Maternal cervical canal: Not well seen. Clinically estimated gestational age: 39 weeks 6 days IMPRESSION: 1. [place] living intrauterine at 39 weeks 6 days based on prior dating. Vertex position. 2. Normal placenta and amniotic fluid. Dictated by: Ty Salas M.D. on 11/30/2023 at 8:08 Approved by: Ty Salas M.D. on 11/30/2023 at 8:12
== END ==
LOC: US 06:58
PROVIDERS: PCP Family Medicine; Referring Provider Family Medicine; Visit Provider Family Medicine
DX: O32.0XX0 Maternal care for unstable lie, not applicable or unspecified (principal); Z3A.39 39 weeks gestation of pregnancy
CPT/HCPCS: 76815

== ENCOUNTER 2023-12-07 00:35 | Inpatient (IN) | payer OTHER, SELFPAY ==
[2023-12-07 00:45] VITALS: BP 114/71
[2023-12-07] MEDS: LACTATED RINGERS 1,000 ML 100 ML IV (01:00)
[2023-12-07 01:14] LABS: Add Manual Diff / Slide Review NO; Basophils Absolute Auto 100 /uL (0-100); Basophils Percent Auto 0.8 % (0-2); Eosinophils Absolute Auto 100 /uL (0-450); Eosinophils Percent Auto 0.8 % (2-4); Hemoglobin 11.6 g/dL (12.0-16.0); Lymphocytes Absolute Auto 2800 /uL (1100-4500); Mean Corpuscular HGB Conc 33.2 % (30-36); Mean Corpuscular Hemoglobin 29.5 PG (26-34); Mean Corpuscular Volume 88.8 fL (80-100); Monocytes Absolute Auto 600 /uL (0-900); Monocytes Percent Auto 4.9 % (3-14); Neutrophils Absolute Auto 8600 /uL (1500-7000); Neutrophils Percent Auto 70.5 % (50-75); Platelet Count 293 X10^3/uL (150-400); Red Blood Cell Count 3.94 X10^6/uL (4.0-5.2); Red Cell Distribution Width 13.6 % (11.6-14.8); White Blood Cell Count 12.2 X10^3/uL (4.5-11.0)
--- NOTE | 2023-12-07 01:17 | P.PCN_ITS ---
Regional Block Pre-procedure Procedure: Continuous Lumbar Epidural for L&D Attending OB provider: Cassidy Swanson PMH/ROS narrative: no complications, term labor, SROM. ASA Class: II Labs: Hct 35.0 % (36-46) L 12/07/23 01:00 Plt Count 293 X10^3/uL (150-400) 12/07/23 01:00 Medications: Current Medications Generic Name Dose Route Start Last Admin Trade Name Freq PRN Reason Stop Dose Admin Calcium Carbonate 1,000 mg 12/07/23 00:46 Calcium Carbonate 500 Mg Tab PO Q4HR PRN Dyspepsia Carboprost Tromethamine 250 mcg 12/07/23 00:46 Carboprost 250 Mcg/Ml Ampul IM Q90M PRN Bleeding Diphenhydramine HCl 25 mg 12/07/23 01:16 Diphenhydramine 50 Mg/Ml Vial IV Q10M PRN Pruritis Fentanyl 50 mcg 12/07/23 00:46 Fentanyl 100 Mcg/2 Ml Inj IV Q1H PRN Pain, Moderate (4-6) Oxytocin/Lactated Ringer's 30 unit in 500 mls @ 2 mls/hr 12/07/23 01:00 Oxytocin Premix IV TITRATE SERGIO Protocol 2 MILLIUNIT/MIN Lactated Ringer's 1,000 mls @ 100 mls/hr 12/07/23 01:00 Lactated Ringers IV CONT SERGIO Oxytocin/Lactated Ringer's 30 unit in 500 mls @ 200 mls/hr 12/07/23 00:46 Oxytocin Premix IV CONT PRN Bleeding Protocol Tranexamic Acid 1,000 mg/ 100 mls @ 200 mls/hr 12/07/23 00:46 Sodium Chloride IV NOW PRN Bleeding FENT 2MCG/ML BUPIV 0.125% EPI 200 mcg in 100 mls @ 6 mls/hr 12/07/23 01:30 Fentanyl/Bupiv/Ns 2mcg/Ml - 0.125% EPIDURAL CONT SERGIO Lidocaine HCl 20 ml 12/07/23 00:46 Lidocaine 1% 20 Ml INJ INTRA-OP PRN Post Delivery Methylergonovine Maleate 0.2 mg 12/07/23 00:46 Methylergonovine 0.2 Mg/Ml Vial IM NOW PRN Bleeding Methylergonovine Maleate 0.2 mg 12/07/23 00:46 Methylergonovine 0.2 Mg Tablet PO Q6HR PRN Heavy Bleeding Misoprostol 400 mcg 12/07/23 00:46 Misoprostol 200 Mcg Tablet SL NOW PRN Bleeding Misoprostol 800 mcg 12/07/23 00:46 Misoprostol 200 Mcg Tablet DC NOW PRN Bleeding Nalbuphine HCl 2.5 mg 12/07/23 01:16 Nalbuphine 20 Mg/Ml Ampul IV Q10M PRN Pruritis Naloxone HCl 0.2 mg 12/07/23 00:46 Naloxone 0.4 Mg/Ml Vial IV Q2MIN PRN Opiate Reversal Ondansetron HCl 4 mg 12/07/23 00:46 Ondansetron 4 Mg/2 Ml Inj IV Q4HR PRN Nausea And Vomiting Oxytocin 10 unit 12/07/23 00:46 Oxytocin 10 Unit/Ml Vial IM NOW PRN Bleeding Allergies: Allergies Allergy/AdvReac Type Severity Reaction Status Date / Time No Known Drug Allergies Allergy Verified 12/02/23 10:53 Procedure Insertion date: 12/07/23 Insertion time: 01:42 Prep/Local: betadine x3 and 1% lidocaine Interspace: L4-5 Patient position: sitting Needle: 18 gauge Aquafadastead (CSE: 27g Pencan through Hustead, clear CSF, 1mL 0.25% bupiv MPF) Loss of resistance with: saline JACINTO at (cm): 6 Catheter placed at SKIN (cm): 11 Catheter in SPACE (cm): 5 Insertion: No CSF, No Blood, No Paresthesia with insertion, No Paresthesia with injection and No Test dose reaction Initial Medications TEST DOSE time: :42 TEST DOSE: 1.5% lidocaine with epinephrine 1:200k (mL): 3 BOLUS DOSE time: 01:49 BOLUS DOSE (mL): 5 BOLUS DOSE med: 0.25% bupivacaine Infusion INFUSION: 0.125% bupivacaine and with fentanyl 2 mcg/mL Initial rate (mL/hr): 8 Subsequent interventions: First attempt L3-4, JACINTO 6cm, IT dose, catheter to 12cm, +blood, withdrew to 11-10-9cm, still +blood. Catheter withdrawn. Sterile field maintained, L4-5 as above. PCEA@8+4. 0312 Post-procedure Anesthesia date START: 12/07/23 Anesthesia time START: Anesthesia date END: 12/07/23 Anesthesia time END: 03:22 Post-procedure Anesthesia Assessment: Yes CV function: HR/BP stable, Yes Resp function: RR/sat/airway adequate, Yes Post-op hydration adequate, Yes Pain control adequate, Yes Nausea & vomiting absent, Yes Temperature > 36 C, Yes Mental status appropriate and No Anesthesia complications
[2023-12-07] MEDS: LACTATED RINGERS 1,000 ML 999 ML IV (02:03)
--- NOTE | 2023-12-07 03:31 | PM.OBPRVD ---
Labor & Delivery Delivery date: 12/07/23 Cervical ripening method: none Induction method: none Delivery monitor: external FHT and external uterine Route of delivery: L&D Laceration Description: None Quantitative Blood Loss: 52 Anesthesia Type: Epidural Complications: None Narrative: PROCEDURE: at 40w6d presented in active labor with SROM and was admitted to Labor and Delivery. The patient progressed through the 1st stage over 5 hours. ROM occured at 23:00 with meconium-stained fluid. Pain was controlled with an epidural. The patient progressed through the 2nd stage over 10 minutes and delivered a viable female with APGARs 8/9 at 3:12 via without complications. The cord was cut and clamped after it stopped pulsating. The placenta delivered with gentle cord traction, and appeared complete. The perineum and vagina were inspected with no lacerations. The placenta was examined and noted to have a [id number] knot in the umbilical cord, marginal cord insertion, and possible accessory lobe. It was sent to pathology for further examination. Needle and sponge counts were correct.? The vagina was inspected and no items were left in situ. Lucy was doing well with Echo, her and her , Trent, at bedside. PREPROCEDURE DIAGNOSIS: Intrauterine at 40w6d FGR - resolved GBS negative RH positive Meconium stained amniotic fluid POSTPROCEDURE DIAGNOSIS: Intrauterine at 40w6d, delivered Same as preprocedure Marginal cord insertion [id number] knot in cord [place] Baby 1: Infant gender: Female Presentation: vertex Position: Right Occiput Anterior Placenta delivery description: Spontaneous Cord Vessel Description: 3 Vessels score (1 min): 8 score (5 min): 9 weight: 6 lb 8.305 oz Plan for aftercare: Routine care
--- NOTE | 2023-12-07 03:33 | P.HPOB_ITS ---
OB HPI Date/Time Date of admission: 12/07/23 Date Patient Seen: 12/07/23 History of Present Condition Chief complaint: Labor GEOVANNI Calculator 2 Estimated Delivery Date Method Current WG Current Estimate 12/01/23 Manual 40w 6d Final GEOVANNI - VAHID Other Estimates 12/01/23 LMP (Certain) 40w 6d 12/02/23 Ultrasound #1 40w 5d Estimated Gestational Age (weeks): 40w6d : 4 Para: 3 Narrative: Pt is a 38yo at 40w6d who presented in active labor. She started evin yesterday morning, increasing in frequency since then. She then had a gush of fluid around 11:50pm. She denies any vaginal bleeding. She is feeling her baby move regularly. The pts was complicated by FGR, with baby at 13th percentile on anatomy u/s. Lowest percentile on f/u imaging 7th percentile, was 29th percentile at 34wks. Pt was followed by MFM with reassuring dopplers and testing. care: good care, initiated at week # (15) and pounds weight gain (17) Dating criteria OB: LMP confirmed by 1st trimester US Ultrasounds: normal 1st trimester US and abnormal US findings Obstetrical complications: growth restriction Medical complications OB: none Preadmission Labs Last OB Lab Results: 2 Blood Type O Positive 12/07/23 01:00 Antibody Screen Negative 12/07/23 01:00 Hematocrit 35.0 % (36-46) L 12/07/23 01:00 Hemoglobin 11.6 g/dL (12.0-16.0) L 12/07/23 01:00 Hepatitis B Surface Antigen Negative s/c (NEGATIVE) 07/02/23 11 :29 Hepatitis C Antibody Negative s/c (NEGATIVE) 07/02/23 11:29 Rubella Antibody 16.4 IU/mL (>15) 07/02/23 11:29 Varicella-Zoster IgG Antibody 1111 index (Immune >165) 07/02/23 11:29 Glucose 1 Hour 144 mg/dL (76-139) H 10/27/18 11:34 Group B Streptococcus (PCR) Neg for grp b strep 11/14/23 12:27 -: Urine: negative Genetic Screens: Cell-free DNA: Normal External Labs -: Urine: negative Prior (ies) Past Pregnancies Del. Date GA/Weeks Labor Lgth Wt Sex Route Outcome Anesthesia Place Delv Breastfeed Preg Comp Name 08/26/12 39.5 7 6 lb 8 oz Male vaginal live - full term ep idural IH 3 months none Jacinto 04/06/15 40.2 5 6 lb 8 oz Male vaginal live - full term ep idural IH 3 months none [place] 01/22/19 41 4 8 lb Male vaginal live - full term none IH 1 year none Trent Evaluation Evaluation Baseline heart rate: 140 Variability: Moderate (11-25) monitor accelerations: Present Monitor Decelerations: Variable Contraction Frequency (minutes): 2 Uterine Contraction Intensity: Strong/Firm Status: Category ll Dilation (cm): 10 Effacement (%): 100 station: +2 PFSH Medical History (Updated 11/24/23 @ 13:52 by Brigitte Self MD) Unstable lie Tachycardia Anxiety with depression Thyroiditis, autoimmune Spontaneous vaginal delivery Chickenpox (~1990) Surgical History (Updated 05/31/23 @ 08:36 by Magaly Casanova RN) [place] teeth extracted (~10/2019) Social History marital status: number of children: 3 household members: spouse, family (mother) and children lives independently: Yes caregiver/support person: Yes housing: house pets and animals: Yes (dogs) education level: college (bachelor's degree) occupational status: employed (Office job) current occupational exposures/hazards: No special clarita needs: No travel history: over 6 months ago seatbelt use: always water heater temp set < 120 deg: Yes working smoke detector in home: Yes fire extinguisher in home: Yes carbon monox detector in home: Yes firearms in home: No do you feel safe at home: Yes Smoking Status: Never smoker second hand exposure: No alcohol intake: former (very rarely when not ) substance use type: does not use during the past year weight has: remained stable well-balanced diet: rarely or never daily servings fruits/ve-1 caffeine: Yes (1 cup coffee in AM) Type(s) of exercise: walking Meds Home Medications and Allergies Home Medications Medication Instructions Recorded Confirmed Type vitamin-ferrous sulfate tab PO 05/31/23 12/02/23 History 27 mg iron-folic acid 0.8 mg tablet ondansetron 4 mg disintegrating 4 mg PO Q6H PRN nausea and 06/15/23 12/02/23 Rx tablet vomiting #30 tabs blood sugar diagnostic (Blood #50 ea 09/02/23 12/02/23 Rx Glucose Test strips) blood-glucose meter (Blood Glucose #1 ea 09/02/23 12/02/23 Rx Monitoring kit) lancets (Ultra Thin Lancets) #100 ea 09/02/23 12/02/23 Rx hydrocortisone 2.5 % topical cream 1 applic NH QD-BID PRN hemorrhoids 11/14/23 12/02/23 Rx with perineal applicator #30 grams (Anusol-HC) Allergies Allergy/AdvReac Type Severity Reaction Status Date / Time No Known Drug Allergies Allergy Verified 12/02/23 10:53 OB Exam Resp Effort & Inspection: normal respiratory effort Auscultation: clear to auscultation bilaterally Cardio Rate: regular rate Rhythm: regular rhythm Heart Sounds: S1 normal, S2 normal and no murmurs GI Inspection: non-distended Palpation: Yes soft and No tender Presentation: vertex Objective Labs 12/07/23 01:00 Labs: Laboratory Results - last 24 hr 12/07/23 01:00 WBC 12.2 H RBC 3.94 L Hgb 11.6 L Hct 35.0 L MCV 88.8 MCH 29.5 MCHC 33.2 RDW 13.6 Plt Count 293 Neut % (Auto) 70.5 Lymph % (Auto) 23.0 L [place] % (Auto) 4.9 Eos % (Auto) 0.8 L Baso % (Auto) 0.8 Neut # (Auto) 8600 H Lymph # (Auto) 2800 [place] # (Auto) 600 Eos # (Auto) 100 Baso # (Auto) 100 Blood Type O Positive Antibody Screen Negative Assessment and Plan Assessment and Plan Assessment and Plan narrative: 38yo at 40w6d who presented in active labor with SROM at home. GBS negative, Rh positive. complicated by FGR, with reassuring testing, normalized at 34wks. - Expectant management, anticipate - Will start pushing now - FHT Category II however close to delivery and returning to baseline - Epidural in place for pain control - GBS negative, no prophylaxis needed
--- NOTE | 2023-12-07 03:40 | PATH_ITS ---
[facility] Accession Number: [id number] No. of containers..01 Tissue . 01 Material submitted: . placenta - PLACENTA . 01 Diagnosis: PLACENTA, DELIVERY: Mature nielsen placenta (456 grams) with rare infarct. - Negative for villitis, thrombosis, and neoplasia. Trivascular umbilical cord with furcate insertion and true knot with focal changes suggestive of early thrombus formation. - Negative for funisitis. membranes with focal mild acute chorioamnionitis. [facility] 12/15/2023 1426 Local . 01 Comment: Documentation Liaison sections of the umbilical cord are also reviewed by Dr. Misti Tavera, who concurs with the given interpretation. . 01 Electronically signed: . Jany Hawk MD, Pathologist NPI- [id number] . 01 Gross description: . Received in formalin with two patient identifiers, is an irregularly shaped nielsen placenta that measures 17.5 x 14.8 x 2.8 cm, and has a 456 gram trimmed weight. The membranes are ochoa-green, focally thickened, and marginally inserted. There is a 61 cm in length by 1.1 cm in diameter attached trivascular umbilical cord which inserts paracentrally, and has a furcate insertion with approximately 1.8 cm insertion. In addition, there is a 4.5 x 3.0 x 1.4 cm true umbilical knot which is further located 36 cm from the umbilical cord insertion site. The cord is unremarkable on either side of the knot, and a photograph is taken. The surface has a ochoa-brown to green color, and the amnion is partially torn away from the chorionic plate. vessels radiate across the entire chorionic plate. The maternal surface is made up of complete and well-formed cotyledons. Cord also has a ochoa, slightly green appearance with 2.5 twists per 10 cm. The placenta parenchyma is red-ochoa, spongy with a 1.1 x 0.8 x 0.8 cm, yellow, mid-placental infarct, which composes less than 10% of the placenta parenchyma. Documentation Liaison sections are submitted as follows: . A1: Membrane rolls. A2: Proximal and distal cord. A3-A5: Full thickness placental disc. A6: Area of infarct. ([id number]) /MRV 12/09/2023 1334 Local . 01 Pathologist provided ICD-10: O43.90 . 01 CPT . 112954 Specimen Comment: A courtesy copy of this report has been sent to [phone] Performed at: 01 [facility] [address] [place] [address], [place], [place] [id number] MD Tom Shankar MD Phone: [phone]
[2023-12-07] MEDS: DOCUSATE 100 MG CAPSULE PO (09:49)
[2023-12-07] MEDS: PRENATAL VIT,CALC/IRON/FOLIC 1 TABLET 1 TAB PO (09:49)
[2023-12-07 23:00] VITALS: BP 111/68; PULSE 127; RESP 16; TEMP 36.7
[2023-12-08] MEDS: DOCUSATE 100 MG CAPSULE PO (09:36)
[2023-12-08] MEDS: PRENATAL VIT,CALC/IRON/FOLIC 1 TABLET 1 TAB PO (09:36)
--- NOTE | 2023-12-08 09:58 | PM.OBDS.1 ---
Discharge Providers Provider Date of admission: 12/07/23 00:35 Discharge Date: 12/08/23 Primary care physician: Cassidy Swanson MD Consults: 12/08/23 03:32 Consult to [employer] Routine Comment: Discharge provider: Cassidy Swanson MD Summary Hospital Course Date Patient Seen: 12/08/23 Diagnoses: Intrauterine at 40w6d FGR - resolved GBS negative RH positive Meconium stained amniotic fluid Marginal cord insertion Xhtosb-[id number]-mvyxd knot in cord Hospital Course: The pt presented in active labor with SROM at home with meconium-stained fluid. She received an epidural for pain control. She advanced to complete and had an of a viable baby girl without complications. There were no lacerations. A marginal cord insertion and [id number]-[id number] knot were noted in the cord. The placenta was sent to pathology. , there were no complications. At the time of discharge she was voiding, ambulating, and passing flatus without difficulty. Her lochia was decreasing appropriately. Her pain was well controlled. She was with good latch. She will f/u in 6 weeks for check. Her is scheduled for vasectomy for contraception. Peripartum Data Delivery Method: Natural Vaginal Laceration Description: None Episiotomy description: None Procedures: Spontaneous vaginal delivery complications: none [place] 1: Gender: Female Disposition of : home Time Spent with Patient Time attestation: Total time spent providing and/or coordinating discharge services: Objective Labs 12/07/23 01:00 Discharge Plan Discharge Plan Patient Disposition: Home Discharge orders & Medications Prescriptions: New acetaminophen 325 mg Tablet 650 mg PO Q6HR PRN (Reason: Pain, Mild (1-3)) Qty: 30 0RF docusate sodium 100 mg Capsule 100 mg PO DAILY Qty: 30 0RF ibuprofen 600 mg Tablet 600 mg PO Q6HR PRN (Reason: Pain, Mild (1-3)) Qty: 30 0RF Continued hydrocortisone [Anusol-HC] 2.5 % cream with perineal applicator 1 applic TX QD-BID PRN (Reason: hemorrhoids) Qty: 30 2RF (DME) blood-glucose meter [Blood Glucose Monitoring] Kit See Rx Instructions .Route Qty: 1 0RF Rx Instructions: As directed for twice daily testing (DME) Blood Glucose Test Strip See Rx Instructions .Route Qty: 50 8RF Rx Instructions: As directed for twice daily testing (DME) lancets [Ultra Thin Lancets] Misc See Rx Instructions .Route Qty: 100 6RF Rx Instructions: As directed for twice daily testing vit-ferrous sulfat-FA 27 mg iron- 0.8 mg tablet PO Discontinued ondansetron 4 mg tablet,disintegrating 4 mg PO Q6H PRN (Reason: nausea and vomiting) Qty: 30 2RF Follow up/Referrals: Cassidy Swanson MD [Primary Care Provider] - 6 Weeks (The appointment will be made at 's office when she sees Bela) Diet/Activity/Treatments Diet: Diet as Tolerated and Regular Skin/Wound/Dressing Care Report to your healthcare provider any signs of infection, such as:: chills, fever, increased pain and unusual drainage Visit Report/Discharge Packet Instructions: DI for Labor and Delivery, Vaginal Stand Alone Forms: Patient Portal/API, Stroke Signs & Symptoms Discharge Data Primary Care Provider: Cassidy Swanson Discharges patient from system. Discharge Date/Time: 12/08/23 12:35
== END 2023-12-08 12:35 | disposition home or self-care (01) | DRG 807 ==
PROVIDERS: Admitting Provider Family Medicine; PCP Family Medicine; Referring Provider Family Medicine; Visit Provider Family Medicine
DX: O42.02 Full-term premature rupture of membranes, onset of labor within 24 hours of rupture (principal); Z37.0 Single live birth; Z3A.40 40 weeks gestation of pregnancy
CPT/HCPCS: 36415; 59050; 59400; 85025; 86850; 86900; 86901; G0379